=== PATIENT | female | born 1990 | race African-American/Black ===

== ENCOUNTER 2017-07-13 18:24 | Emergency (ER) | payer SELFPAY ==
[~2017-07-13] VITALS: Ht 162.6 cm; Wt 98.0 kg
[2017-07-13] MEDS ORDERED: IBUPROFEN 600MG TABLET PO ONE (20:45)
[2017-07-13 21:16] VITALS: BP 119/66
== END 2017-07-13 21:20 | disposition home or self-care (01) ==
LOC: ER 19:10
DX: S90.02XA Contusion of left ankle, initial encounter (principal); M25.562 Pain in left knee; Z98.890 Other specified postprocedural states; X50.1XXA Overexertion from prolonged static or awkward postures, initial encounter; Y93.89 Activity, other specified; Y92.018 Other place in single-family (private) house as the place of occurrence of the external cause
CPT/HCPCS: 73610; 99284

== ENCOUNTER 2018-03-06 19:38 | Emergency (ER) | payer MEDICAID ==
[~2018-03-06] VITALS: Ht 154.9 cm; Wt 103.0 kg
[2018-03-07] MEDS ORDERED: ACETAMINOPHEN 325MG TABLET PO ONE (01:00)
[2018-03-07 01:08] VITALS: BP 124/83
== END 2018-03-07 01:10 | disposition home or self-care (01) ==
LOC: ER 19:38
DX: O26.891 Other specified pregnancy related conditions, first trimester (principal); O23.591 Infection of other part of genital tract in pregnancy, first trimester; Z3A.01 Less than 8 weeks gestation of pregnancy
CPT/HCPCS: 81025; 99283; X7700; Z7610

== ENCOUNTER 2018-09-11 08:32 | Emergency (ER) | payer MEDICAID ==
[~2018-09-11] VITALS: Ht 175.3 cm; Wt 98.0 kg
[2018-09-11] MEDS ORDERED: IBUPROFEN 600MG TABLET PO ONE (09:30)
[2018-09-11 10:13] LABS: CLARITY URINE CLEAR (CLEAR); COLOR URINE YELLOW (YELLOW); KETONES URINE TRACE (NEGATIVE); LEUKOCYTE ESTERASE URINE NEGATIVE (NEGATIVE); NITRITE URINE NEGATIVE (NEGATIVE); OCCULT BLOOD URINE NEGATIVE (NEGATIVE); PROTEIN URINE NEGATIVE (NEGATIVE); SPECIFIC GRAVITY URINE 1.056 (1.005-1.030)
[2018-09-11 10:30] VITALS: BP 139/75
== END 2018-09-11 10:32 | disposition home or self-care (01) ==
LOC: ER 08:41
DX: S39.012A Strain of muscle, fascia and tendon of lower back, initial encounter (principal); X50.9XXA Other and unspecified overexertion or strenuous movements or postures, initial encounter; Y93.89 Activity, other specified; Y92.89 Other specified places as the place of occurrence of the external cause; Y99.8 Other external cause status; Z98.890 Other specified postprocedural states
CPT/HCPCS: 81025; 99283